=== PATIENT | female | born 1990 | race African-American/Black ===

== ENCOUNTER 2016-10-09 19:02 | Emergency (ER) | payer MEDICAID, OTHER ==
[~2016-10-09] VITALS: Ht 165.1 cm; Wt 79.4 kg
[~2016-10-09 19:02] MED LIST: AMOXICILLIN500 MG ORAL; AZITHROMYCIN250 MG ORAL; BENADRYL25 MG PO; IBUPROFEN600 MG ORAL; IBUPROFEN600 MG PO; IBUPROFEN800 M1 PO; KEFLEX500 MG ORAL; MACROBID100 MG; NKM; NORCO 5-325 TA1 EACH ORAL; PERIDEX 0.12% O16 OZ ORAL; ZOFRAN ODT8 MG ORAL
[2016-10-09] MEDS ORDERED: traMADol 50mg tab ORAL ONE (19:15)
[2016-10-09] MEDS ORDERED: IBUPROFEN600 MG ORAL (21:21)
[2016-10-09 21:41] VITALS: BP 115/76
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
--- NOTE | 2016-10-10 12:13 | Diagnostic Imaging Report ---
Indications: hip pain Findings: Two views of the left hip were obtained. No acute fracture is demonstrated. Alignment of the hip is within normal limits. Soft tissues are unremarkable. Impression: Negative examination of the hip.
--- NOTE | 2016-10-10 12:14 | Diagnostic Imaging Report ---
Indication: Pain 3 views of the left knee were obtained. Findings: No acute fracture, malalignment, or joint effusion are identified. Joint space is relatively well-maintained. Bone mineralization is within normal limits for age. Impression: Negative exam
--- NOTE | 2016-10-10 12:14 | Diagnostic Imaging Report ---
Indication: pain Findings: 3 views of the right hand were obtained. Normal bony mineralization and alignment are demonstrated. No acute fractures, erosions, or periosteal reaction are seen. Soft tissues are unremarkable. Impression: Negative examination of the right hand.
--- NOTE | 2016-10-10 12:15 | Diagnostic Imaging Report ---
Indication: Pain Comparison: None Findings: 3 views of the left ankle obtained. No acute fracture, malalignment, periostitis, or osteochondral defects are identified. Soft tissues are unremarkable. Impression: No acute findings
--- NOTE | 2016-10-10 13:27 | Diagnostic Imaging Report ---
Indication: pain Findings: 3 views of the left hand were obtained. Normal bony mineralization and alignment are demonstrated. No acute fractures, erosions, or periosteal reaction are seen. Soft tissues are unremarkable. Impression: Negative examination of the left hand.
--- NOTE | 2016-10-10 13:27 | Diagnostic Imaging Report ---
Indication: Pain Findings: 3 views of the left shoulder were obtained. Alignment of the left shoulder is normal. No acute fracture is identified. Soft tissues are unremarkable. Impression: Negative left shoulder examination
--- NOTE | 2016-10-10 16:01 | Diagnostic Imaging Report ---
Indication: Pain Findings: 3 views of the left elbow were obtained. No acute fractures, malalignment, erosions or periostitis are identified. Bone mineralization is within normal limits. Soft tissues are unremarkable. Impression: Negative examination of the elbow.
== END 2016-10-09 21:45 | disposition home or self-care (01) ==
LOC: EDBD 19:02 → EMR 19:30
DX: S63.601A Unspecified sprain of right thumb, initial encounter (principal); S93.402A Sprain of unspecified ligament of left ankle, initial encounter; V43.62XA Car passenger injured in collision with other type car in traffic accident, initial encounter; Y92.414 Local residential or business street as the place of occurrence of the external cause; J45.909 Unspecified asthma, uncomplicated; M25.522 Pain in left elbow; M25.552 Pain in left hip; M25.562 Pain in left knee; M25.512 Pain in left shoulder
CPT/HCPCS: 73502; 99284

== ENCOUNTER 2018-04-05 18:18 | Emergency (ER) | payer MEDICAID, OTHER ==
[~2018-04-05] VITALS: Ht 165.1 cm; Wt 83.9 kg
[2018-04-05] MEDS ORDERED: Morphine Sulfate 4mg/ml Inj IVP ONE (19:15)
[2018-04-05 19:17] VITALS: BP_SYST 119; BP_SYST 19; BP_DIAS 52
[2018-04-05 19:40] LABS: BASOPHILS % (AUTO) 1.4 % (0.0-2.0); EOSINOPHILS % (AUTO) 4.4 % (0.0-3.0); HEMATOCRIT 35.2 % (37.0-47.0); HEMOGLOBIN 12.3 G/DL (12.0-16.0); LYMPHOCYTES % (AUTO) 21.3 % (20.0-45.0); MEAN CORPUSCULAR VOLUME 90 FL (80-99); MONOCYTES % (AUTO) 3.9 % (1.0-10.0); PLATELET COUNT 289 K/UL (150-450); RED BLOOD COUNT 3.93 M/UL (4.20-5.40); RED CELL DISTRIBUTION WIDTH 11.2 % (11.6-14.8)
[2018-04-05 19:45] LABS: ANION GAP 7 mmol/L (5-15); BLOOD UREA NITROGEN 11 mg/dL (7-18); CALCIUM 8.8 MG/DL (8.5-10.1); CARBON DIOXIDE 30 MMOL/L (21-32); CHLORIDE 104 MMOL/L (98-107); POTASSIUM 3.4 MMOL/L (3.5-5.1); SODIUM 140 MMOL/L (136-145)
[2018-04-05 19:49] LABS: ALANINE AMINOTRANSFERASE 40 U/L (12-78); ALBUMIN 3.7 G/DL (3.4-5.0); ALBUMIN/GLOBULIN RATIO 1.1 (1.0-2.7); ALKALINE PHOSPHATASE 43 U/L (46-116); ASPARTATE AMINO TRANSFERASE 22 U/L (15-37); BILIRUBIN,TOTAL 0.3 MG/DL (0.2-1.0)
--- NOTE | 2018-04-05 22:06 | Emergency Room Report ---
History of Present Illness General Chief Complaint: Flu Like Symptoms Source: Patient, Medical Record Present Illness HPI Patient's 27-year-old female is presenting with nausea vomiting diarrhea and diffuse abdominal pain for the last several days. Patient is also complaining of cough and congestion. She denies fever or chills Allergies: Coded Allergies: No Known Allergies (Unverified , 06/10/12) Patient History Past Medical History: none Past Surgical History: none Pertinent Family History: none Social History: Denies: smoking, alcohol use, drug use Last Menstrual Period: 03/16/18 Nursing Documentation-H Hx Asthma: No - Bronchitis Review of Systems Constitutional: Reports: weakness; Denies: no symptoms, see HPI, chills, sweats , fever, malaise, other Eye: Denies: no symptoms, see HPI, eye pain, blurred vision, tearing, double vision, nose pain, nose congestion, acuity changes, discharge, other ENT: Denies: no symptoms, see HPI, ear pain, ear discharge, nose pain, nose congestion, throat pain, throat swelling, mouth pain, hearing loss, nasal discharge, other Respiratory: Denies: no symptoms, see HPI, cough, orthopnea, shortness of breath, stridor, wheezing, KIM, sputum, other Cardiovascular: Denies: no symptoms, see HPI, chest pain, edema, palpitations, syncope, PND, other Gastrointestinal: Reports: see HPI Genitourinary: Denies: no symptoms, see HPI, discharge, dysuria, frequency, hematuria, pain, retention, incontinence, urgency, vag bleed/dc, other Musculoskeletal: Denies: no symptoms, see HPI, back pain, gout, joint pain, joint swelling, muscle pain, muscle stiffness, other Skin: Denies: no symptoms, see HPI, rash, change in color, change in hair/nails , dryness, lesions, other Neurological: Denies: no symptoms, see HPI, headache, numbness, paresthesia, seizure, tingling, tremors, focal weakness, syncope, dizziness, other Endocrine: Denies: no symptoms, see HPI, excessive sweating, flushing, intolerance to temperature, increased thirst, increased urine, unexplained weight loss, other Physical Exam Vital Signs Date Time Temp Pulse Resp B/P (MAP) Pulse Ox O2 Delivery O2 Flow Rate FiO2 04/05/18 18:23 97.9 71 18 110/62 100 Room Air 97.9 Sp02 EP Interpretation: reviewed, normal General Appearance: no apparent distress, alert, GCS 15, non-toxic Head: normocephalic, atraumatic Eyes: bilateral eye normal inspection, bilateral eye PERRL ENT: hearing grossly normal, normal pharynx, no angioedema, normal voice Neck: full range of motion, supple/symm/no masses Respiratory: chest non-tender, lungs clear, normal breath sounds, speaking full sentences Cardiovascular #1: regular rate, rhythm, no edema Cardiovascular #2: 2+ carotid (R), 2+ carotid (L), 2+ radial (R), 2+ radial (L) , 2+ dorsalis pedis (R), 2+ dorsalis pedis (L) Gastrointestinal: normal bowel sounds, non tender, soft, non-distended, no guarding, no rebound Rectal: deferred Genitourinary: normal inspection, no CVA tenderness Musculoskeletal: back normal, gait/station normal, normal range of motion, non- tender, calf tenderness Neurologic: alert, oriented x3, responsive, motor strength/tone normal, sensory intact, speech normal Psychiatric: judgement/insight normal, memory normal, mood/affect normal, no suicidal/homicidal ideation Reflexes: 3+ bicep (R), 3+ bicep (L), 3+ tricep (R), 3+ tricep (L), 3+ knee (R) , 3+ knee (L) Skin: normal color, no rash, warm/dry, well hydrated Lymphatic: no adenopathy Medical Decision Making Diagnostic Impression: Primary Impression: Vomiting and diarrhea ER Course Patient is a 27-year-old female who is presenting with nausea vomiting and multiple other symptoms. The patient's parents relief with IV fluids and pain and nausea meds here in the department. Laboratory studies showed no evidence of acute abnormality. The patient can be safely discharged home to follow with her primary care physician. Laboratory Tests Test 04/05/18 18:56 04/05/18 21:15 White Blood Count 12.0 K/UL (4.8-10.8) H Red Blood Count 3.93 M/UL (4.20-5.40) L Hemoglobin 12.3 G/DL (12.0-16.0) Hematocrit 35.2 % (37.0-47.0) L Mean Corpuscular Volume 90 FL (80-99) Mean Corpuscular Hemoglobin 31.2 PG (27.0-31.0) H Mean Corpuscular Hemoglobin Concent 34.8 G/DL (32.0-36.0) Red Cell Distribution Width 11.2 % (11.6-14.8) L Platelet Count 289 K/UL (150-450) Mean Platelet Volume 6.1 FL (6.5-10.1) L Neutrophils (%) (Auto) 69.0 % (45.0-75.0) Lymphocytes (%) (Auto) 21.3 % (20.0-45.0) Monocytes (%) (Auto) 3.9 % (1.0-10.0) Eosinophils (%) (Auto) 4.4 % (0.0-3.0) H Basophils (%) (Auto) 1.4 % (0.0-2.0) Sodium Level 140 MMOL/L (136-145) Potassium Level 3.4 MMOL/L (3.5-5.1) L Chloride Level 104 MMOL/L (98-107) Carbon Dioxide Level 30 MMOL/L (21-32) Anion Gap 7 mmol/L (5-15) Blood Urea Nitrogen 11 mg/dL (7-18) Creatinine 1.0 MG/DL (0.55-1.30) Estimate Glomerular Filtration Rate > 60 mL/min (>60) Glucose Level 77 MG/DL (74-106) Calcium Level 8.8 MG/DL (8.5-10.1) Total Bilirubin 0.3 MG/DL (0.2-1.0) Aspartate Amino Transferase (AST) 22 U/L (15-37) Alanine Aminotransferase (ALT) 40 U/L (12-78) Alkaline Phosphatase 43 U/L (46-116) L Total Protein 7.1 G/DL (6.4-8.2) Albumin 3.7 G/DL (3.4-5.0) Globulin 3.4 g/dL Albumin/Globulin Ratio 1.1 (1.0-2.7) Lipase 113 U/L (73-393) Urine Color Pending Urine Appearance Pending Urine pH Pending Urine Specific [place] Pending Urine Protein Pending Urine Glucose (UA) Pending Urine Ketones Pending Urine Occult Blood Pending Urine Nitrite Pending Urine Bilirubin Pending Urine Urobilinogen Pending Urine Leukocyte Esterase Pending Urine HCG, Qualitative Pending EKG Diagnostic Results EP Interpretation: EKG at 1843-normal sinus rhythm, rate 64, normal axis, no acute ST or T-wav Last Vital Signs Date Time Temp Pulse Resp B/P (MAP) Pulse Ox O2 Delivery O2 Flow Rate FiO2 04/05/18 20:05 97.9 04/05/18 19:18 58 18 Room Air 04/05/18 19:17 19/52 100 Disposition: HOME, SELF-CARE Condition: Stable Scripts Ondansetron (Zofran) 4 Mg Tablet 4 MG ORAL Q6H PRN for Nausea & Vomiting, #30 TAB 0 Refills Prov: John Cervantes MD 04/05/18 Hydrocodone Bit/Acetaminophen 5-325* (NORCO 5-325*) 1 Each Tablet 1 TAB ORAL Q6H PRN for For Pain, #10 TAB 0 Refills Prov: John Cervantes MD 04/05/18 Referrals: [facility] (PCP) Patient Instructions: Nausea and Vomiting, Adult, [id number] John Cervantes MD Apr 05, 2018 22:06
[2018-04-05 22:28] LABS: APPEARANCE,URINE CLEAR; BILIRUBIN, URINE NEGATIVE (NEGATIVE); GLUCOSE, URINE (UA) NEGATIVE (NEGATIVE); KETONES,URINE 1+ (NEGATIVE); LEUKOCYTE ESTERASE ,URINE 2+ (NEGATIVE); NITRITE,URINE NEGATIVE (NEGATIVE); PH,URINE 5 (4.5-8.0); PROTEIN,URINE 1+ (NEGATIVE); UROBILINOGEN,URINE NORMAL MG/DL (0.0-1.0)
[2018-04-05 22:35] LABS: COLOR,URINE YELLOW
[2018-04-05] MEDS ORDERED: NORCO 5-325 TA1 EACH ORAL (22:42)
[2018-04-05] MEDS ORDERED: ZOFRAN4 MG ORAL (22:42)
[2018-04-05 22:56] VITALS: BP 104/55
[2018-04-05 22:57] VITALS: BP 104/55
== END 2018-04-05 22:59 | disposition home or self-care (01) ==
LOC: EMR 19:55
DX: R11.10 Vomiting, unspecified (principal); R19.7 Diarrhea, unspecified
CPT/HCPCS: 36415; 80053; 81003; 81025; 83690; 85025; 99284; J2270; J2405

== ENCOUNTER 2018-07-09 11:56 | Emergency (ER) | payer SELFPAY ==
[~2018-07-09] VITALS: Ht 165.1 cm; Wt 81.6 kg
[~2018-07-09 11:56] MED LIST changes: +ZOFRAN4 MG ORAL
[2018-07-09 12:14] VITALS: BP 118/69
[2018-07-09] MEDS ORDERED: CLARITIN10 M1 ORAL (12:23)
[2018-07-09] MEDS ORDERED: PREDNISONE20 MG ORAL (12:23)
--- NOTE | 2018-07-09 12:23 | Emergency Room Report ---
History of Present Illness General Chief Complaint: General Complaint Source: Patient Present Illness HPI 28-year-old female patient presents ER complaining of possible allergic reaction. Reports that following eating some shrimp yesterday she began to experience left lip and cheek swelling. She denies difficulty breathing, shortness of breath, chest pain, vomiting, tongue swelling. Reports does not know she is allergic to shrimp but has had similar symptoms in the past when eating shrimp. Denies vomiting or diarrhea. Reports has not taken any medication for relief of symptoms, states that take Benadryl makes her drowsy and she works at night. Denies hx of diabetes or high blood pressure. Allergies: Coded Allergies: No Known Allergies (Unverified , 07/09/18) Patient History Past Medical History: see triage record Last Menstrual Period: 07/06/2018 Reviewed Nursing Documentation: PMH: Agreed; PSxH: Agreed Nursing Documentation-PMH Past Medical History: No History, Except For Hx Asthma: No - Bronchitis Review of Systems All Other Systems: negative except mentioned in HPI Physical Exam Vital Signs Date Time Temp Pulse Resp B/P (MAP) Pulse Ox O2 Delivery O2 Flow Rate FiO2 07/09/18 12:02 98.7 72 16 118/69 99 Room Air 98.8 Sp02 EP Interpretation: reviewed, normal General Appearance: well appearing, no apparent distress, alert, GCS 15, non- toxic Head: normocephalic, atraumatic Eyes: bilateral eye normal inspection, bilateral eye PERRL ENT: hearing grossly normal, normal pharynx, no angioedema, normal voice, TMs + canals normal, uvula midline, moist mucus membranes, other - left upper lip: swollen urticaria, no surrounding erythema or edema, no fluctuance or induration , no palpable mass Neck: full range of motion, no bony tend Respiratory: lungs clear, normal breath sounds, no rhonchi, no respiratory distress, no accessory muscle use, no wheezing, speaking full sentences Cardiovascular #1: regular rate, rhythm, no edema Musculoskeletal: back normal, digits/nails normal, gait/station normal, normal range of motion, non-tender Neurologic: alert, oriented x3, responsive, motor strength/tone normal, sensory intact Skin: no rash Lymphatic: no adenopathy Medical Decision Making PA Attestation Dr. Beach is my supervising Physician whom patient management has been discussed with. Diagnostic Impression: Primary Impression: Food allergy ER Course Pt. presents to the ED c/o allergic reaction. Ddx considered but are not limited to hives, rash, food allergy, URI. Vital signs: are WNL, pt. is afebrile ER COURSE: physical exam shows likely urticaria due to allergic reaction on left upper lip. Lungs clear to auscultation, no stridor, no angioedema, voice normal, no vomiting or fever, low suspicion for anaphylaxis. do not believe patient requires anabiotic's for cellulitis at this time, likely localized reaction due to food allergen. Provided patient with pepcid and prednisone in the ER, Will provide Rx for prednisone at discharge begin taking medication tomorrow. ER precautions given Follow-up with primary care provider to discuss allergy testing. DISCHARGE: Rx provided for Claritin Rx provided for Prednisone At this time, pt. is stable for d/c home. Will provide printed patient care instructions, and any necessary prescriptions. Discussed avoidance of foods that may cause similar symptoms to present again. Care plan and follow up instructions have been discussed with the patient prior to discharge. Patient questions asked and answered. ER precautions given. Patient instructed to return to ER for new or worsening of symptoms. - Please note that this Emergency Department Report was dictated using [employer] r[employer] technology software, occasionally this can lead to erroneous entry secondary to interpretation by the dictation equipment. Last Vital Signs Date Time Temp Pulse Resp B/P (MAP) Pulse Ox O2 Delivery O2 Flow Rate FiO2 07/09/18 12:14 98.8 16 118/69 99 Room Air 98.8 07/09/18 12:02 72 Disposition: HOME, SELF-CARE Condition: Stable Scripts Loratadine (CLARITIN) 10 Mg Tab.rapdis 10 MG ORAL DAILY, #30 TAB Prov: Siva Chakraborty P.A. 07/09/18 Prednisone* (PREDNISONE*) 20 Mg Tablet 40 MG ORAL DAILY for 4 Days, #8 TAB Prov: Siva Chakraborty.A. 07/09/18 Patient Instructions: Food Allergy, [id number] Additional Instructions: Followup with primary care provider in 3 -5 days. Will provide Rx for prednisone at discharge begin taking medication tomorrow, first does given in ER. Follow-up with primary care provider to discuss allergy testing. Take Claritin during awake hours and Benadryl prior to sleep to help with allergy symptoms. Take medications as directed. Patient questions asked and answered. ER precautions given, patient instructed to return to ER immediately for any new or worsening of symptoms. Siva Chakraborty Jul 09, 2018 12:23
[2018-07-09 12:34] VITALS: BP 123/77
== END 2018-07-09 12:35 | disposition home or self-care (01) ==
LOC: EMR 12:17
DX: T78.1XXA Other adverse food reactions, not elsewhere classified, initial encounter (principal); X58.XXXA Exposure to other specified factors, initial encounter
CPT/HCPCS: 99283; J7512

== ENCOUNTER 2018-12-29 18:59 | Emergency (ER) | payer SELFPAY ==
[~2018-12-29] VITALS: Ht 165.1 cm; Wt 83.9 kg
[~2018-12-29 18:59] MED LIST changes: +CLARITIN10 M1 ORAL; +PREDNISONE20 MG ORAL
[2018-12-29] MEDS ORDERED: NKM (19:14)
--- NOTE | 2018-12-29 19:23 | NUR ---
ED Nurse Note: Walk in patient presents with complaints of chest pain and dizziness.
--- NOTE | 2018-12-29 19:34 | NUR ---
ED Nurse Note: Urine collected and taken to lab.
[2018-12-29 19:36] VITALS: BP 117/74
[2018-12-29 19:42] LABS: APPEARANCE,URINE CLEAR; BILIRUBIN, URINE NEGATIVE (NEGATIVE); COLOR,URINE PALE YELLOW; GLUCOSE, URINE (UA) NEGATIVE (NEGATIVE); KETONES,URINE NEGATIVE (NEGATIVE); LEUKOCYTE ESTERASE ,URINE 1+ (NEGATIVE); NITRITE,URINE NEGATIVE (NEGATIVE); PH,URINE 7 (4.5-8.0); PROTEIN,URINE NEGATIVE (NEGATIVE); UROBILINOGEN,URINE NORMAL MG/DL (0.0-1.0)
--- NOTE | 2018-12-29 19:42 | NUR ---
ED Nurse Note: PAtient currently undergoing chest xray.
[2018-12-29 20:31] VITALS: BP 123/66
[2018-12-29] MEDS ORDERED: IBUPROFEN600 MG ORAL (20:38)
--- NOTE | 2018-12-29 20:49 | NUR ---
ED Nurse Note: Patient cleared for discharge, no s/s of acute distress, patient ambulatory with steady gait, ID band removed. Patient departed with all belongings accompanied by her boyfriend. Patient verbalized understanding of discharge instructions.
[2018-12-29 20:50] VITALS: BP 123/66
--- NOTE | 2018-12-30 00:07 | Emergency Room Report ---
History of Present Illness General Chief Complaint: Chest Pain Source: Patient Present Illness HPI Patient presented after chest pain for several months worse with movement and change in position. No prior cardiac history. She denied vomitting or cough. Patient denies any prior cardiac history. She had not been having any shortness of breath. She denies any leg pain or swelling. She reports having chest pain for many months. This had not changed in intensity or severity. She additionally reports having a scalp lesion which had been also present for many months and she had previously been advised to have this removed with a general surgeon has been previously referred but was unable to make her appointments. Allergies: Coded Allergies: No Known Allergies (Unverified , 07/09/18) Patient History Past Medical History: see triage record Last Menstrual Period: NOVEMBER 2018 Reviewed Nursing Documentation: PMH: Agreed; PSxH: Agreed Nursing Documentation-PMH Hx Asthma: No - Bronchitis Review of Systems All Other Systems: negative except mentioned in HPI Physical Exam Vital Signs Date Time Temp Pulse Resp B/P (MAP) Pulse Ox O2 Delivery O2 Flow Rate FiO2 12/29/18 19:11 99.1 74 14 117/74 99 Room Air General Appearance: well appearing, no apparent distress, alert, GCS 15, obese Head: atraumatic, other - occipital scalp lesion, no fluctuance or erythema or warmth ENT: hearing grossly normal, normal voice Neck: full range of motion, supple Respiratory: no respiratory distress, speaking full sentences Cardiovascular #1: normal inspection, no edema Gastrointestinal: normal inspection Genitourinary: no CVA tenderness Musculoskeletal: normal inspection, no calf tenderness Neurologic: normal inspection, alert, oriented x3, responsive, 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 Differential diagnosis included but was not limited to acute coronary syndrome, pulmonary embolism, pneumonia, aortic dissection, shingles, pneumothorax, aortic dissection, esophageal rupture, pericarditis. Patient has a benign exam and does not appear to require any further imaging or laboratory testing at this time. Patient's chest pain appears to be musculoskeletal. EKG interpreted by me showed normal sinus rhythm without acute ST or T wave changes. Chest x-ray 1 view interpreted by me showed normal cardiac size without evident infiltrate or effusion. Patient' s scalp lesion appears to be chronic and does not appear to have any evidence of infection. Patient was advised outpatient surgical evaluation for removal. Labs Test 12/29/18 19:30 Urine Color Pale yellow Urine Appearance Clear Urine pH 7 (4.5-8.0) Urine Specific [place] 1.005 (1.005-1.035) Urine Protein Negative (NEGATIVE) Urine Glucose (UA) Negative (NEGATIVE) Urine Ketones Negative (NEGATIVE) Urine Blood Negative (NEGATIVE) Urine Nitrite Negative (NEGATIVE) Urine Bilirubin Negative (NEGATIVE) Urine Urobilinogen Normal MG/DL (0.0-1.0) Urine Leukocyte Esterase 1+ (NEGATIVE) Urine RBC 0-2 /HPF (0 - 2) Urine WBC 2-4 /HPF (0 - 2) Urine Squamous Epithelial Cells Few /LPF (NONE/OCC) Urine Bacteria Few /HPF (NONE) Urine HCG, Qualitative Negative (NEGATIVE) EKG Diagnostic Results Rate: normal Rhythm: NSR ST Segments: no acute changes Last Vital Signs Date Time Temp Pulse Resp B/P (MAP) Pulse Ox O2 Delivery O2 Flow Rate FiO2 12/29/18 20:50 99.1 67 21 123/66 99 Room Air Status: improved Disposition: HOME, SELF-CARE Condition: Stable Scripts Ibuprofen* (MOTRIN*) 600 Mg Tablet 600 MG ORAL Q8H PRN for For Pain, #30 TAB 0 Refills Prov: Yasmani Doherty MD 12/29/18 Patient Instructions: Nonspecific Chest Pain Yasmani Doherty MD Dec 30, 2018 00:07
--- NOTE | 2018-12-30 14:23 | Diagnostic Imaging Report ---
Indication: Chest pain Technique: One view of the chest Comparison: none Findings: Lungs and pleural spaces are clear. Heart size is normal Impression: No acute process
--- NOTE | 2018-12-30 19:39 | Cardiology Report ---
APPROVED REPORT EKG Measurement Heart [id number] MA 132P-14 [id number] Normal sinus rhythm Normal ECG
== END 2018-12-29 20:48 | disposition home or self-care (01) ==
LOC: EMR 20:08
DX: R07.9 Chest pain, unspecified (principal); L72.9 Follicular cyst of the skin and subcutaneous tissue, unspecified; E66.9 Obesity, unspecified; Z68.30 Body mass index [BMI] 30.0-30.9, adult
CPT/HCPCS: 71045; 81003; 81025; 93005; 99283